=== PATIENT | male | born 1980 | race Caucasian/White ===

== ENCOUNTER 2025-04-16 21:00 | Emergency (ER) | payer BC, SELFPAY ==
--- NOTE | ~2025-04-16 | XR_ITS ---
EXAMINATION: XR knee LT 3V, 04/16/2025 22:01 CDT HISTORY: laceration COMPARISON: No comparisons available. Findings: No acute fracture or malalignment. No significant degenerative changes. Soft tissues unremarkable. Impression: No acute fracture or malalignment. Reviewed, dictated and finalized at location A. Impression: No acute fracture or malalignment.
[2025-04-16 21:03] VITALS: BP 151/92; PULSE 94; RESP 17; TEMP 36.3; O2SAT 99
--- NOTE | 2025-04-16 22:55 | ED_ITS ---
HPI - General Adult General Chief complaint: Wound/Laceration Stated complaint: L tejada wound Time Seen by Provider: 04/16/25 22:33 History of Present Illness HPI narrative: Patient is a 44-year-old male who presents emergency department this evening complaining of a small laceration to his left knee. Patient states that he hit his knee against something he is unsure. This happened shortly prior to arrival. Ambulating without any difficulty. Unsure of his tetanus status. Denies any additional symptoms or concerns. Related Data Allergies Allergy/AdvReac Type Severity Reaction Status Date / Time No Known Allergies Allergy Verified 04/16/25 21:05 Review of Systems Review of Systems: All systems are reviewed and are negative unless stated otherwise in the HPI. Exam Narrative: General: Alert, awake, afebrile, in no acute distress. HEENT: PERRL, no rhinorrhea, no post nasal drip, oropharynx clear. Neck: Trachea midline, no JVD, no lymphadenopathy. Cardiovascular: Regular rate and rhythm, no murmurs, rubs or gallops, no p eripheral edema. Respiratory: Clear to auscultation bilaterally, no tachypnea, no wheezing, no rhonchi, no rubs, no respiratory distress. Abdomen: Soft, nontender, nondistended, no rebound, no guarding, no peritoneal signs. Musculoskeletal: No joint swelling or deformity, normal muscle tone, 2 cm linear laceration below the left knee, intact left knee. Skin: No rashes or petechia, no signs of infection. Psychiatric: Alert and oriented, normal behavior and judgment for situation. Neurological: Alert and oriented to person, place, and time. Follows all commands. No focal deficits, speech is clear and fluent. Course Vital Signs Vital signs: Vital Signs Temperature 97.3 F L 04/16/25 21:03 Pulse Rate 94 04/16/25 21:03 Respiratory Rate 17 04/16/25 21:03 Blood Pressure 151/92 H 04/16/25 21:03 Pulse Oximetry 99 04/16/25 21:03 Oxygen Delivery Room Air 04/16/25 21:03 Temperature 97.3 F L 04/16/25 21:03 Pulse Rate 94 04/16/25 21:03 Respiratory Rate 17 04/16/25 21:03 Blood Pressure 151/92 H 04/16/25 21:03 Pulse Oximetry 99 04/16/25 21:03 Oxygen Delivery Room Air 04/16/25 21:03 Procedures Laceration Laceration 1: Date: 04/16/25 Time: 22:56 Site: lower extremity Side (If applicable): left Size (cm): 2 Description: linear Depth: simple, single layer Local Anesthetic: lidocaine 1% Amount of anesthesia used (mL): 2 Pre-repair: wound explored and irrigated ====== Skin Level ====== Skin layer closed with: nylon Size (cm): 4-0 Number of sutures: 3 Technique: simple, interrupted ====== Subcutaneous Layer ====== ====== Muscle Layer ====== ====== Tendon Layer ====== Medical Decision Making MDM Narrative Medical decision making narrative: The patient was evaluated by myself in the emergency department. History is obtained from patient who is an independent historian and physical exam was performed. External medical records were reviewed at this time. Patient's tetanus was updated today. Imaging studies obtained included a left knee xray which was independently interpreted by me revealing no acute process, which is pending final radiology interpretation. Differential diagnosis considerations include laceration, abrasion, fracture. Comorbidities impacting this visit include none. I have evaluated and discussed social determinants of health with the patient that could potentially impact subsequent diagnosis and treatment plans. On repeat assessment of the patient, reevaluation revealed that the patient is doing well and is in no acute distress. Patient symptoms have improved since he arrived to our emergency department. Repeat vital signs were all reviewed and noted to be stable. Differential diagnosis and treatment plan were discussed with the patient at bedside. Patient agrees with discussion and after shared medical decision making agrees with discharge. All questions were answered to the patient's satisfaction. Patient will follow up with his PCP in 7-10 days for suture removal. Patient was provided with strict return precautions and instructed to return to the emergency department if any new or worsening symptoms develop. The patient was discharged in stable condition. Vital Signs Vital Signs: Vital Signs Temperature 97.3 F L 04/16/25 21:03 Pulse Rate 94 04/16/25 21:03 Respiratory Rate 17 04/16/25 21:03 Blood Pressure 151/92 H 04/16/25 21:03 Pulse Oximetry 99 04/16/25 21:03 Oxygen Delivery Room Air 04/16/25 21:03 Temperature 97.3 F L 04/16/25 21:03 Pulse Rate 94 04/16/25 21:03 Respiratory Rate 17 04/16/25 21:03 Blood Pressure 151/92 H 04/16/25 21:03 Pulse Oximetry 99 04/16/25 21:03 Oxygen Delivery Room Air 04/16/25 21:03 Discharge Plan Discharge Clinical Impression: Laceration Patient Disposition: Home Condition: Improved Instructions: Antibiotic Form, Care For Your Stitches (ED) Additional Instructions: The 3 sutures that were placed today will need to be removed by medical professional within the next 7-10 days. Return to the emergency department if any new or worsening symptoms develop. Patient Language: Vincentian Follow-up/Referrals: Davin,INDIRA Tang [Primary Care Provider, Unknown] - 1 Week Time of Disposition: 22:56
[2025-04-16] MEDS: TETANUS,DIPHTHERIA,AC PERTUSSIS ADULT (0.5 ML) BOOSTRIX IM (23:01)
[2025-04-16 23:26] VITALS: BP 138/89; PULSE 89; RESP 18; O2SAT 99
== END 2025-04-16 23:20 | disposition home or self-care (01) ==
PROVIDERS: Emergency Provider Emergency Medicine; PCP Nurse Practitioner Family
DX: S81.012A Laceration without foreign body, left knee, initial encounter (principal); W22.8XXA Striking against or struck by other objects, initial encounter; Z23 Encounter for immunization
CPT/HCPCS: 12001; 73562; 90471; 90715; 99283